=== PATIENT | female | born 2000 | race Caucasian/White ===

== ENCOUNTER 2025-11-09 05:36 | Inpatient (IN) | payer OTHER ==
[~2025-11-09] VITALS: Ht 167.6 cm; Wt 95.7 kg
[2025-11-09 09:00] VITALS: BP 120/84
[2025-11-09] MEDS ORDERED: XARELTO20 MG PO (09:19)
[2025-11-09] MEDS ORDERED: ESCI10 PO (09:19)
[2025-11-09] MEDS ORDERED: BUPROPION XL150 M1 PO (09:19)
[2025-11-09] MEDS ORDERED: PRED20 PO (09:19)
[2025-11-09] MEDS ORDERED: Ondansetron HCl 2 MG / ML 2ML Vial IV PRN (10:00)
[2025-11-09] MEDS ORDERED: FLU VACC TS2025-26(6MOS UP)/PF 45 MCG/0.5 ML SYRINGE IM SCH (10:00)
[2025-11-09] MEDS ORDERED: HYDROmorphone HCl/Pf 1MG SYR IV PRN (10:05)
[2025-11-09 10:19] LABS: BASOPHILS ABSOLUTE AUTO 0.06 K/mm3 (0.00-0.23); BASOPHILS PERCENT AUTO 0 % (0-2); EOSINOPHILS ABSOLUTE AUTO 0.05 K/mm3 (0.00-0.68); EOSINOPHILS PERCENT AUTO 0 % (0-6); Hematocrit 39.0 % (33.0-51.0); Hemoglobin 13.0 g/dL (11.5-16.0); IMMATURE GRAN ABSOLUTE AUTO 0.14 K/mm3 (0.00-0.10); IMMATURE GRAN PERCENT AUTO 1 % (0-1); LYMPHOCYTES ABSOLUTE AUTO 1.34 K/mm3 (0.84-5.20); LYMPHOCYTES PERCENT AUTO 8 % (21-46); MONOCYTES ABSOLUTE AUTO 1.25 K/mm3 (0.16-1.47); MONOCYTES PERCENT AUTO 8 % (4-13); Mean Corpuscular HGB Conc 33.3 g/dL (31.5-36.5); Mean Corpuscular Volume 87 fL (80-100); NEUTROPHILS ABSOLUTE AUTO 13.77 K/mm3 (1.96-9.15); NEUTROPHILS PERCENT AUTO 83 % (41-73); NRBC ABSOLUTE 0.00 K/mm3 (0.00-0.02); NRBC Auto 0.0 /100 WBC (0.0-0.2); Platelet Count 330 K/mm3 (150-400); RDW Coefficient Variation 12.6 % (11.7-14.2); RDW Standard Deviation 40.1 fL (35.1-46.3)
[2025-11-09 10:42] LABS: Alanine Aminotransfer (ALT/SGP 25.0 U/L (12-78); Albumin, Blood 3.6 g/dL (3.4-5.0); Albumin/Globulin Ratio 1.1 (0.8-1.8); Anion Gap 10.0 mmol/L (3-11); Aspartate Aminotrans (AST/SGOT 13.0 U/L (12-37); Bilirubin, Total 1.0 mg/dL (0.1-1.0); Blood Urea Nitrogen 14.0 mg/dL (8-24); CO2, Blood 29.0 mmol/L (21-32); Calcium, Blood 8.9 mg/dL (8.5-10.1); Chloride, Blood 104.0 mmol/L (98-108); Creatinine, Blood 0.92 mg/dL (0.40-1.00); Globulin, Blood 3.3 g/dL (2.2-4.0); Glucose, Blood 116.0 mg/dL (70-99); Magnesium, Blood 2.5 mg/dL (1.6-2.4); Phosphorus, Blood 4.3 mg/dL (2.5-4.9); Potassium, Blood 3.6 mmol/L (3.5-5.5); Sodium, Blood 139.0 mmol/L (136-145); Total Protein, Blood 6.9 g/dL (6.4-8.2)
[2025-11-09] MEDS ORDERED: Enoxaparin 150 MG/ML 1ML SYR SC SCH ×2 (14:12→15:00)
[2025-11-09 15:31] VITALS: BP 140/88
--- NOTE | 2025-11-09 18:12 | NUR ---
SHIFT SUMMARY PT A&OX4, VSS, AMB TO BATHROOM TO VOID, AND C/O PAIN AND NAUSEA X1 THAT WAS MEDICATED EMAR. NG TO LOW INTERMIT SUCTION W/ ORANGE/BROWN OUTPUT. 300 OUT THIS SHIFT. LR CONT TO INFUSE PER ORDER. CALL LIGHT WITHIN REACH AND PT ABLE TO MAKE NEEDS KNOWN.
[2025-11-09 19:40] VITALS: BP 122/84
[2025-11-10 03:02] VITALS: BP 123/90
[2025-11-10 05:28] LABS: BASOPHILS ABSOLUTE AUTO 0.07 K/mm3 (0.00-0.23); BASOPHILS PERCENT AUTO 1 % (0-2); EOSINOPHILS ABSOLUTE AUTO 0.08 K/mm3 (0.00-0.68); EOSINOPHILS PERCENT AUTO 1 % (0-6); Hematocrit 35.0 % (33.0-51.0); Hemoglobin 11.5 g/dL (11.5-16.0); IMMATURE GRAN ABSOLUTE AUTO 0.12 K/mm3 (0.00-0.10); IMMATURE GRAN PERCENT AUTO 1 % (0-1); LYMPHOCYTES ABSOLUTE AUTO 2.37 K/mm3 (0.84-5.20); LYMPHOCYTES PERCENT AUTO 16 % (21-46); MONOCYTES ABSOLUTE AUTO 1.19 K/mm3 (0.16-1.47); MONOCYTES PERCENT AUTO 8 % (4-13); Mean Corpuscular HGB Conc 32.9 g/dL (31.5-36.5); Mean Corpuscular Volume 89 fL (80-100); NEUTROPHILS ABSOLUTE AUTO 11.35 K/mm3 (1.96-9.15); NEUTROPHILS PERCENT AUTO 75 % (41-73); NRBC ABSOLUTE 0.00 K/mm3 (0.00-0.02); NRBC Auto 0.0 /100 WBC (0.0-0.2); Platelet Count 310 K/mm3 (150-400); RDW Coefficient Variation 12.5 % (11.7-14.2); RDW Standard Deviation 40.5 fL (35.1-46.3)
--- NOTE | 2025-11-10 05:34 | NUR ---
SHIFT SUMMARY PATIENT IS ALERT AND ORIENTED. PATIENT HAS HAD NO ACUTE EVENTS THIS SHIFT. VITAL SIGNS REVIEWED. PATIENT HAS HAD NO COMPLAINTS OF SOB, VOMITTING OR PAIN THIS SHIFT. PATIENT HAS COMPLAINED OF NAUSEA THIS SHIFT AND MEDICATED PER EMAR. NG TUBE OUTPUTTED APPROX 200ML THIS SHIFT TO SUCTION. BED IN LOCKED AND LOWEST POSITION. CALL LIGHT IN PLACE.
[2025-11-10 05:59] LABS: Anion Gap 9.0 mmol/L (3-11); Blood Urea Nitrogen 9.0 mg/dL (8-24); CO2, Blood 28.0 mmol/L (21-32); Calcium, Blood 8.7 mg/dL (8.5-10.1); Chloride, Blood 106.0 mmol/L (98-108); Creatinine, Blood 0.77 mg/dL (0.40-1.00); Glucose, Blood 89.0 mg/dL (70-99); Potassium, Blood 3.6 mmol/L (3.5-5.5); Sodium, Blood 139.0 mmol/L (136-145)
[2025-11-10 08:08] VITALS: BP 140/88
[2025-11-10] MEDS ORDERED: Ketorolac Tromethamine 30mg Vial IV PRN (13:15)
[2025-11-10 15:26] VITALS: BP 120/64
--- NOTE | 2025-11-10 18:19 | NUR ---
SHIFT SUMMARY PT C/O THROAT PAIN FROM NG X1 THAT WAS MEDICATED PER EMAR W/ RELIEF. LR CONT TO INFUSE PER ORDER. NG TO LOW INTERMIT SUCTION W/ DARK GREEN/BROWNISH OUPUT. PT WALKED THE GARNER T/O SHIFT. NO OTHER ACUTE CHANGES. CALL LIGHT WITHIN REACH AND PT ABLE TO MAKE NEEDS KNOWN.
[2025-11-10 19:51] VITALS: BP 127/79
--- NOTE | 2025-11-11 04:28 | NUR ---
SHIFT SUMMARY: PT IS AOX4 AND IND IN ROOM. PT HAS NG TUBE IN PLACE ON LOW INTERMINENT SUCTIONING. MEDIUM BROWN OUTPUT. PT SLEPT MOST OF THE NIGHT. NO ACUTE CHANGES. LR RUNNING AT BEDSIDE AT 100 MLS/HR.
[2025-11-11 04:50] VITALS: BP 127/73
[2025-11-11 05:34] LABS: BASOPHILS ABSOLUTE AUTO 0.04 K/mm3 (0.00-0.23); BASOPHILS PERCENT AUTO 0 % (0-2); EOSINOPHILS ABSOLUTE AUTO 0.01 K/mm3 (0.00-0.68); EOSINOPHILS PERCENT AUTO 0 % (0-6); Hematocrit 36.9 % (33.0-51.0); Hemoglobin 12.1 g/dL (11.5-16.0); IMMATURE GRAN ABSOLUTE AUTO 0.11 K/mm3 (0.00-0.10); IMMATURE GRAN PERCENT AUTO 1 % (0-1); LYMPHOCYTES ABSOLUTE AUTO 1.78 K/mm3 (0.84-5.20); LYMPHOCYTES PERCENT AUTO 13 % (21-46); MONOCYTES ABSOLUTE AUTO 0.98 K/mm3 (0.16-1.47); MONOCYTES PERCENT AUTO 7 % (4-13); Mean Corpuscular HGB Conc 32.8 g/dL (31.5-36.5); Mean Corpuscular Volume 90 fL (80-100); NEUTROPHILS ABSOLUTE AUTO 11.31 K/mm3 (1.96-9.15); NEUTROPHILS PERCENT AUTO 79 % (41-73); NRBC ABSOLUTE 0.00 K/mm3 (0.00-0.02); NRBC Auto 0.0 /100 WBC (0.0-0.2); Platelet Count 329 K/mm3 (150-400); RDW Coefficient Variation 12.4 % (11.7-14.2); RDW Standard Deviation 40.9 fL (35.1-46.3)
[2025-11-11 06:02] LABS: Alanine Aminotransfer (ALT/SGP 18.0 U/L (12-78); Albumin, Blood 3.3 g/dL (3.4-5.0); Albumin/Globulin Ratio 1.0 (0.8-1.8); Anion Gap 8.0 mmol/L (3-11); Aspartate Aminotrans (AST/SGOT 12.0 U/L (12-37); Bilirubin, Total 0.6 mg/dL (0.1-1.0); Blood Urea Nitrogen 10.0 mg/dL (8-24); CO2, Blood 27.0 mmol/L (21-32); Calcium, Blood 9.0 mg/dL (8.5-10.1); Chloride, Blood 106.0 mmol/L (98-108); Creatinine, Blood 0.76 mg/dL (0.40-1.00); Globulin, Blood 3.3 g/dL (2.2-4.0); Glucose, Blood 95.0 mg/dL (70-99); Magnesium, Blood 2.2 mg/dL (1.6-2.4); Phosphorus, Blood 4.8 mg/dL (2.5-4.9); Potassium, Blood 3.9 mmol/L (3.5-5.5); Sodium, Blood 137.0 mmol/L (136-145); Total Protein, Blood 6.6 g/dL (6.4-8.2)
[2025-11-11 08:25] VITALS: BP 123/83
[2025-11-11 16:01] VITALS: BP 132/89
--- NOTE | 2025-11-11 18:12 | NUR ---
NOTE PT LAERT. UP IN HALLWAY AMBULATING. TOOK A SHOWER. ICE CHIPS HAVE HELPED WITH SORE THROAT. NG TUBE SET TO LIS. REMOVING DARK GREEN WITH MATERIAL. NO BM YET. LR INFUSING AT 100 ML/HR. PT S/O HAS ARRIVED FROM [place]. PT IS CRYING. GAVE THEM PRIVACY.
[2025-11-11 20:03] VITALS: BP 134/94
[2025-11-11] MEDS ORDERED: DEXTROMETHORPHAN/BENZOCAINE 1 EACH LOZENGE MT PRN (21:30)
[2025-11-12 04:19] VITALS: BP 129/83
[2025-11-12 04:42] LABS: BASOPHILS ABSOLUTE AUTO 0.01 K/mm3 (0.00-0.23); BASOPHILS PERCENT AUTO 0 % (0-2); EOSINOPHILS ABSOLUTE AUTO 0.00 K/mm3 (0.00-0.68); EOSINOPHILS PERCENT AUTO 0 % (0-6); Hematocrit 35.6 % (33.0-51.0); Hemoglobin 11.9 g/dL (11.5-16.0); IMMATURE GRAN ABSOLUTE AUTO 0.07 K/mm3 (0.00-0.10); IMMATURE GRAN PERCENT AUTO 1 % (0-1); LYMPHOCYTES ABSOLUTE AUTO 1.51 K/mm3 (0.84-5.20); LYMPHOCYTES PERCENT AUTO 11 % (21-46); MONOCYTES ABSOLUTE AUTO 0.78 K/mm3 (0.16-1.47); MONOCYTES PERCENT AUTO 6 % (4-13); Mean Corpuscular HGB Conc 33.4 g/dL (31.5-36.5); Mean Corpuscular Volume 88 fL (80-100); NEUTROPHILS ABSOLUTE AUTO 11.49 K/mm3 (1.96-9.15); NEUTROPHILS PERCENT AUTO 83 % (41-73); NRBC ABSOLUTE 0.00 K/mm3 (0.00-0.02); NRBC Auto 0.0 /100 WBC (0.0-0.2); Platelet Count 318 K/mm3 (150-400); RDW Coefficient Variation 12.0 % (11.7-14.2); RDW Standard Deviation 38.7 fL (35.1-46.3)
--- NOTE | 2025-11-12 04:52 | NUR ---
ASSUMED CARE AT APROX 0230-- PT A/OX4. NG TUBE IN PLACE W/LIS. PT PAIN IS 3/10 RELATED TO SORE THROAT. CEPECAL LOZENGES GIVEN TO TX. ICE CHIPS ALSO GIVEN. CONT LR FLUIDS AT 100. REGULAR INTERVAL ROUNDING AND CARE ONGOING.
[2025-11-12 05:05] LABS: Anion Gap 10.0 mmol/L (3-11); Blood Urea Nitrogen 11.0 mg/dL (8-24); CO2, Blood 27.0 mmol/L (21-32); Calcium, Blood 8.9 mg/dL (8.5-10.1); Chloride, Blood 105.0 mmol/L (98-108); Creatinine, Blood 0.8 mg/dL (0.40-1.00); Glucose, Blood 95.0 mg/dL (70-99); Potassium, Blood 3.6 mmol/L (3.5-5.5); Sodium, Blood 138.0 mmol/L (136-145)
[2025-11-12 07:43] VITALS: BP 121/83
--- NOTE | 2025-11-12 17:47 | NUR ---
SHIFT SUMMARY: A&OX4. PLEASANT AND COOPERATIVE WITH CARE. PT NG TUBE CLAMPED SINCE 1335. PT DENIES FEELING ANY ABDOMINAL PAIN, DISTENTION, AND/OR NAUSEA. PT UP WALKING HALLWAYS INDEPENDENTLY. NO ACUTE EVENTS THIS SHIFT. REMAINS NPO WITH EXECPTION OF ICE CHIPS. SITTING IN BED AT THIS TIME. CALL LT WITHIN REACH.
[2025-11-12 20:56] VITALS: BP 119/84
[2025-11-13 03:07] VITALS: BP 114/77
--- NOTE | 2025-11-13 05:16 | NUR ---
DRIVER OPERATOR SUMMARY PT A&OX4, VSS. ABLE TO COMMUNICATE NEEDS APPROPRIATELY. PT HAS BEEN ASLEEP FOR MOST OF THE NIGHT. CHEST RISE/RESPIRATIONS NOTED. CONTINUES TO BE NPO EXCEPT ICE CHIPS PER ORDER. NO REQUEST FOR ICE CHIPS NOTED THIS SHIFT. NG TUBE REMAINS CLAMPED. NO ABD DISTENSION NOTED. PT DENIES ANY ABD PAIN OR NAUSEA. BED RAILS UP X 2, BED IN LOWEST POSITION, BED WHEELS LOCKED, PERSONAL BELONGINGS AND CALL LIGHT WITHIN REACH FOR SAFETY.
[2025-11-13 07:46] VITALS: BP 123/79
[2025-11-13] MEDS ORDERED: Insulin Pump Cartridge MISC SC SCH (10:00)
[2025-11-13 14:19] LABS: BASOPHILS ABSOLUTE AUTO 0.04 K/mm3 (0.00-0.23); BASOPHILS PERCENT AUTO 0 % (0-2); EOSINOPHILS ABSOLUTE AUTO 0.06 K/mm3 (0.00-0.68); EOSINOPHILS PERCENT AUTO 0 % (0-6); Hematocrit 41.0 % (33.0-51.0); Hemoglobin 13.9 g/dL (11.5-16.0); IMMATURE GRAN ABSOLUTE AUTO 0.12 K/mm3 (0.00-0.10); IMMATURE GRAN PERCENT AUTO 1 % (0-1); LYMPHOCYTES ABSOLUTE AUTO 1.34 K/mm3 (0.84-5.20); LYMPHOCYTES PERCENT AUTO 7 % (21-46); MONOCYTES ABSOLUTE AUTO 0.67 K/mm3 (0.16-1.47); MONOCYTES PERCENT AUTO 4 % (4-13); Mean Corpuscular HGB Conc 33.9 g/dL (31.5-36.5); Mean Corpuscular Volume 87 fL (80-100); NEUTROPHILS ABSOLUTE AUTO 16.26 K/mm3 (1.96-9.15); NEUTROPHILS PERCENT AUTO 88 % (41-73); NRBC ABSOLUTE 0.00 K/mm3 (0.00-0.02); NRBC Auto 0.0 /100 WBC (0.0-0.2); Platelet Count 360 K/mm3 (150-400); RDW Coefficient Variation 12.0 % (11.7-14.2); RDW Standard Deviation 38.9 fL (35.1-46.3)
[2025-11-13 14:24] LABS: Anion Gap 12.0 mmol/L (3-11); Blood Urea Nitrogen 16.0 mg/dL (8-24); CO2, Blood 25.0 mmol/L (21-32); Calcium, Blood 9.1 mg/dL (8.5-10.1); Chloride, Blood 104.0 mmol/L (98-108); Creatinine, Blood 0.8 mg/dL (0.40-1.00); Glucose, Blood 100.0 mg/dL (70-99); Magnesium, Blood 2.1 mg/dL (1.6-2.4); Phosphorus, Blood 3.2 mg/dL (2.5-4.9); Potassium, Blood 3.6 mmol/L (3.5-5.5); Sodium, Blood 137.0 mmol/L (136-145)
--- NOTE | 2025-11-13 17:44 | NUR ---
SHIFT SUMMARY: A&OX4 THROUGHOUT SHIFT. NG TUBE REMOVED PER DR MOSES. PT STS SHE IS TOLERATING WELL. DIET ADVANCED WITHOUT COMPLICATIONS. NO ACUTE EVENTS THIS SHIFT. INDEPENDENTLY AMBULATING IN ROOM TALKING WITH VISITOR AT THIS TIME.
[2025-11-13 19:49] VITALS: BP 134/81
[2025-11-13] MEDS ORDERED: Infliximab-DYYB 600 MG in NS 250 ML IV ONE (23:00)
[2025-11-13] MEDS ORDERED: NS 250 ML IV PRN (23:15)
--- NOTE | 2025-11-14 04:15 | NUR ---
PAINTER FOREMAN SUMMARY PT A&OX4, VSS. ABLE TO COMMUNICATE NEEDS APPROPRIATELY. NO ACUTE CHANGES T/O THIS SHIFT AT TIME OF NOTE. PT HAS BEEN ASLEEP FOR MOST OF THE SHIFT. CHEST RISE/RESPIRATIONS NOTED. TOLERATING FULL LIQUID DIET WELL. BED RAILS UP X 2, BED IN LOWEST POSITION, BED WHEELS LOCKED, PERSONAL BELONGINGS AND CALL LIGHT WITHIN REACH FOR SAFETY.
[2025-11-14 05:13] VITALS: BP 119/78
[2025-11-14 05:39] LABS: BASOPHILS ABSOLUTE AUTO 0.02 K/mm3 (0.00-0.23); BASOPHILS PERCENT AUTO 0 % (0-2); EOSINOPHILS ABSOLUTE AUTO 0.03 K/mm3 (0.00-0.68); EOSINOPHILS PERCENT AUTO 0 % (0-6); Hematocrit 39.1 % (33.0-51.0); Hemoglobin 13.1 g/dL (11.5-16.0); IMMATURE GRAN ABSOLUTE AUTO 0.13 K/mm3 (0.00-0.10); IMMATURE GRAN PERCENT AUTO 1 % (0-1); LYMPHOCYTES ABSOLUTE AUTO 1.86 K/mm3 (0.84-5.20); LYMPHOCYTES PERCENT AUTO 12 % (21-46); MONOCYTES ABSOLUTE AUTO 0.89 K/mm3 (0.16-1.47); MONOCYTES PERCENT AUTO 6 % (4-13); Mean Corpuscular HGB Conc 33.5 g/dL (31.5-36.5); Mean Corpuscular Volume 88 fL (80-100); NEUTROPHILS ABSOLUTE AUTO 12.34 K/mm3 (1.96-9.15); NEUTROPHILS PERCENT AUTO 81 % (41-73); NRBC ABSOLUTE 0.00 K/mm3 (0.00-0.02); NRBC Auto 0.0 /100 WBC (0.0-0.2); Platelet Count 369 K/mm3 (150-400); RDW Coefficient Variation 12.2 % (11.7-14.2); RDW Standard Deviation 39.1 fL (35.1-46.3)
[2025-11-14 06:02] LABS: Albumin, Blood 3.8 g/dL (3.4-5.0); Anion Gap 10 mmol/L (3-11); Blood Urea Nitrogen 13 mg/dL (8-24); CO2, Blood 25 mmol/L (21-32); Calcium, Blood 9.4 mg/dL (8.5-10.1); Chloride, Blood 104 mmol/L (98-108); Creatinine, Blood 0.81 mg/dL (0.40-1.00); Glucose, Blood 95 mg/dL (70-99); Magnesium, Blood 2.2 mg/dL (1.6-2.4); Phosphorus, Blood 5.3 mg/dL (2.5-4.9); Potassium, Blood 3.9 mmol/L (3.5-5.5); Sodium, Blood 135 mmol/L (136-145)
[2025-11-14 07:22] VITALS: BP 125/97
[2025-11-14 07:24] VITALS: BP 119/94
--- NOTE | 2025-11-14 14:02 | NUR ---
DISCHARGE NOTE PT DISCHARGED TO HOME, PICKED UP BY THEIR FRIEND. IV REMOVED. DISCHARGE EDUCATION AND INFORMATION REVIEWED WITH THE PT. HARD SCRIPT PROVIDED. PERSONAL BELONGINGS RETURNED. PT WALKED TO MEET THEIR FRIEND AT THE CAR.
--- NOTE | 2025-11-15 17:02 | NUR ---
ACCESSED PT'S CHART TODAY AT REQUEST OF MD TO COMMUNICATE DOSE OF INFLECTRA ADMINISTERED WHILE PT IN HOSPITAL.
== END 2025-11-14 13:59 | disposition home or self-care (01) | DRG 386 ==
LOC: MEDS 05:37 → UNDOADMOB 09:05 → MEDS 11-10 12:08
PROVIDERS: ADMIT Student in an Organized Health Care Education/Training Program
PROC: 0D9670Z Drainage of Stomach with Drainage Device, Via Natural or Artificial Opening (ICD-10-PCS; principal; 2025-11-09)
PROC: 3E02340 Introduction of Influenza Vaccine into Muscle, Percutaneous Approach (ICD-10-PCS; 2025-11-09)
DX: K50.019 Crohn's disease of small intestine with unspecified complications (principal); D68.59 Other primary thrombophilia; K56.609 Unspecified intestinal obstruction, unspecified as to partial versus complete obstruction; F32.9 Major depressive disorder, single episode, unspecified; R94.31 Abnormal electrocardiogram [ECG] [EKG]; F41.1 Generalized anxiety disorder; Z87.19 Personal history of other diseases of the digestive system; Z23 Encounter for immunization; Z90.710 Acquired absence of both cervix and uterus; Z91.040 Latex allergy status; Z93.2 Ileostomy status; Z79.899 Other long term (current) drug therapy; Z79.52 Long term (current) use of systemic steroids; Z79.01 Long term (current) use of anticoagulants
CPT/HCPCS: 36415; 80048; 80053; 80069; 83735; 84100; 85025; 96361; 96372; 96374; 96375; 96376; A9270; G0378; J1171; J1650; J1885; J2405; J2919; J7050; J7120; Q5103